=== PATIENT | female | born 1945 | race African-American/Black ===

== ENCOUNTER 2016-11-27 11:38 | Emergency (ER) | payer MEDICARE, OTHER ==
[~2016-11-27] VITALS: Ht 157.5 cm; Wt 69.0 kg
[~2016-11-27 11:38] MED LIST: AMLO-511 PO; ASPI-556 PO; CARI350 PO; CODEINE; DIAZ10 PO; DOCU-174 PO; ESOM20CA31 PO; FURO20 PO; HYDR-3965 PO; IBUP-2070 PO; LEVO100 PO; LORA10TA7 PO; LOSA50TA37 PO; MELO-273 PO; METF500T4 PO; MOME17N NASAL; POTA8TAB4 PO; PREG100C PO; PROMETH; RISP.5 PO; SIMV-260 PO; TEMA15CA PO; TRAVATAN EYE DROP; TRAZ-144 PO; VENTOLIN INH
[2016-11-27 11:47] LABS: GLUCOSE,POINT OF CARE 272 MG/DL (70-110)
[2016-11-27] MEDS ORDERED: ONDANSETRON HCL 4 MG TABLET PO ONE (12:00)
[2016-11-27] MEDS ORDERED: OxyCODONE HCL/ACETAMINOPHEN 5-325 MG TABLET PO ONE (12:00)
[2016-11-27 12:08] LABS: APPEARANCE,URINE CLEAR (CLEAR); GLUCOSE, URINE (UA) NEGATIVE (NEGATIVE); KETONES,URINE NEGATIVE (NEGATIVE); LEUKOCYTE ESTERASE ,URINE SMALL (NEGATIVE); OCCULT BLOOD,URINE MODERATE (NEGATIVE); PROTEIN,URINE NEGATIVE (NEGATIVE)
[2016-11-27 12:14] LABS: RBC,URINE 0-2 /HPF (0-2); SQUAMOUS EPITHELIAL CELL,UR Few /LPF (None Seen)
[2016-11-27 12:29] LABS: BASOPHILS % (AUTO) 0.3 % (0.0-2.0); EOSINOPHILS % (AUTO) 2.1 % (1.0-6.0); HEMATOCRIT 41.4 % (36-46); HEMOGLOBIN 13.1 g/dL (12.0-16.0); LYMPHOCYTES % (AUTO) 27.9 % (22.0-44.0); MEAN CORPUSCULAR HEMOGLOBIN 29.6 pg (26.0-34.0); MEAN CORPUSCULAR HGB CONC 31.7 G/dL (31.0-37.0); MEAN CORPUSCULAR VOLUME 93 fL (80-100); MONOCYTES # (AUTO) 0.9 K/uL (0.1-1.0); MONOCYTES % (AUTO) 8.2 % (2.0-9.0); NEUTROPHILS # (AUTO) 6.6 K/uL (1.8-7.7); NEUTROPHILS % (AUTO) 61.5 % (40.0-70.0); PLATELET COUNT (AUTO) 158 K/uL (150-450); RED BLOOD CELL COUNT(AUTO) 4.43 MIL/uL (4.00-5.20); RED CELL DISTRIBUTION WIDTH 14.3 % (11.5-14.5); WHITE BLOOD COUNT (AUTO) 10.8 K/uL (4.5-11.0)
[2016-11-27 12:40] LABS: CREATININE 1.32 mg/dL (0.60-1.30); POTASSIUM 4.1 mmol/L (3.5-5.1)
[2016-11-27 12:44] VITALS: BP 129/83
[2016-11-27 12:45] LABS: ALBUMIN 3.2 g/dL (3.4-5.0); BILIRUBIN,TOTAL 0.4 mg/dL (0.1-1.0); TOTAL PROTEIN, SERUM 6.8 g/dL (6.4-8.2)
[2016-11-27] MEDS ORDERED: CefTRIAXone 1 GM/DEXTROSE 50 ML IV ONE (13:15)
[2016-11-27] MEDS ORDERED: KETOROLAC TROMETHAMINE 30 MG/ML VIAL IVP ONE (13:15)
== END 2016-11-27 13:34 | disposition home or self-care (01) ==
LOC: EMS 11:42
DX: N39.0 Urinary tract infection, site not specified (principal); I10 Essential (primary) hypertension; E11.9 Type 2 diabetes mellitus without complications; F17.210 Nicotine dependence, cigarettes, uncomplicated; Z79.82 Long term (current) use of aspirin; Z88.5 Allergy status to narcotic agent
CPT/HCPCS: 36415; 76856; 80053; 81001; 82962; 85025; 87077; 87086; 96374; 96375; 99285; J0696; J1885; Q0162

== ENCOUNTER → 2016-12-19 | Outpatient (CLI) | payer MEDICARE, OTHER ==
[~2016-12-19] MED LIST changes: +REGADENOSON 0.4 MG/5 ML PF SYRINGE IVP ONE; +SESTAMIBI TC99M/UD ISOTOPE 1 EA INJ INJ ONE
[2016-12-19 08:30] VITALS: BP 129/95
[2016-12-19 09:29] VITALS: BP 149/90
== END | disposition home or self-care (01) ==
LOC: CARDMN 07:58
PROVIDERS: ATTEND Internal Medicine Cardiovascular Disease
DX: I25.9 Chronic ischemic heart disease, unspecified (principal); I50.1 Left ventricular failure, unspecified; I08.1 Rheumatic disorders of both mitral and tricuspid valves
CPT/HCPCS: 78452; 93017; 93306; A9500; J2785

== ENCOUNTER → 2016-12-27 | Outpatient (CLI) | payer MEDICARE, OTHER ==
[~2016-12-27] VITALS: Ht 157.5 cm; Wt 81.8 kg
[~2016-12-27] MED LIST changes: +ASCO500; +AZIT250T PO; +CEFU500T PO; +HYDR-3971 PO; +LUBI8CAP PO; +MELO15TA12 PO; +METO-325 PO; +MULT1CAP32 PO; +OLOP2.5D OP; +OXYC10 PO; +OXYM40TA PO; +PANT40TA25 PO; +POTA10TA23 PO; -REGADENOSON 0.4 MG/5 ML PF SYRINGE IVP ONE; -SESTAMIBI TC99M/UD ISOTOPE 1 EA INJ INJ ONE; +ZINC220 PO; +[UNRECOGNIZED DRUG - OTHER] PO
[2016-12-27 13:34] VITALS: BP 140/76
== END | disposition home or self-care (01) ==
LOC: SRCNTR 13:23
PROVIDERS: ATTEND Internal Medicine Critical Care Medicine
DX: E11.9 Type 2 diabetes mellitus without complications (principal); J44.1 Chronic obstructive pulmonary disease with (acute) exacerbation; I10 Essential (primary) hypertension; E78.5 Hyperlipidemia, unspecified; K21.0 Gastro-esophageal reflux disease with esophagitis; E05.90 Thyrotoxicosis, unspecified without thyrotoxic crisis or storm; M60.9 Myositis, unspecified; I67.1 Cerebral aneurysm, nonruptured
CPT/HCPCS: G0463

== ENCOUNTER → 2017-11-13 | Outpatient (CLI) | payer MEDICARE, OTHER ==
[~2017-11-13] VITALS: Ht 157.5 cm; Wt 85.0 kg
[~2017-11-13] MED LIST changes: -ASCO500; -AZIT250T PO; -CEFU500T PO; -DOCU-174 PO; +DOCU100C34 PO; -HYDR-3965 PO; -HYDR-3971 PO; +HYDR-4061 PO; +IPRA3AMP4 IH; -LUBI8CAP PO; +MELO-107 PO; -MELO-273 PO; -MELO15TA12 PO; -METF500T4 PO; +METF500T6 PO; -METO-325 PO; -MULT1CAP32 PO; -OLOP2.5D OP; -OXYC10 PO; -OXYM40TA PO; -PANT40TA25 PO; -POTA10TA23 PO; -ZINC220 PO; -[UNRECOGNIZED DRUG - OTHER] PO
[2017-11-13 12:20] VITALS: BP 148/95
== END | disposition home or self-care (01) ==
LOC: SRCNTR 12:09
PROVIDERS: ATTEND Internal Medicine Critical Care Medicine
DX: J44.1 Chronic obstructive pulmonary disease with (acute) exacerbation (principal); I10 Essential (primary) hypertension; E11.9 Type 2 diabetes mellitus without complications; K21.9 Gastro-esophageal reflux disease without esophagitis; E78.5 Hyperlipidemia, unspecified; M79.1 Myalgia; I67.1 Cerebral aneurysm, nonruptured; E05.90 Thyrotoxicosis, unspecified without thyrotoxic crisis or storm
CPT/HCPCS: G0463

== ENCOUNTER → 2021-06-09 | Outpatient (CLI) | payer MEDICARE, OTHER ==
[~2021-06-09] MED LIST changes: +AMLO-257 PO; -AMLO-511 PO; -CARI350 PO; +IPRA3AMP24 IH; -IPRA3AMP4 IH; +METF-1211 PO; -METF500T6 PO; -POTA8TAB4 PO; -RISP.5 PO; +RISP0.5T39 PO; +SLOWK8 PO; -TRAZ-144 PO; +TRAZ-252 PO
== END | disposition home or self-care (01) ==
LOC: RADMN 12:09
PROVIDERS: ATTEND Specialist
DX: I67.82 Cerebral ischemia (principal); I63.81 Other cerebral infarction due to occlusion or stenosis of small artery; J34.89 Other specified disorders of nose and nasal sinuses
CPT/HCPCS: 70551

== ENCOUNTER → 2021-06-12 | Outpatient (CLI) | payer MEDICARE, OTHER | END | disposition home or self-care (01) | LOC: RADMN 12:32 | PROVIDERS: ATTEND Specialist | DX: M50.021 Cervical disc disorder at C4-C5 level with myelopathy (principal); M48.02 Spinal stenosis, cervical region; M75.102 Unspecified rotator cuff tear or rupture of left shoulder, not specified as traumatic; D36.9 Benign neoplasm, unspecified site; M75.52 Bursitis of left shoulder; G95.89 Other specified diseases of spinal cord | CPT/HCPCS: 72141; 73221 ==

== ENCOUNTER → 2023-03-26 | Outpatient (CLI) | payer MEDICARE, OTHER ==
[~2023-03-26] MED LIST changes: +IBUP-1492 PO; -IBUP-2070 PO; +LOSA-382 PO; -LOSA50TA37 PO; -MELO-107 PO; +MELO-381 PO
== END | disposition home or self-care (01) ==
LOC: RADMN 10:48
PROVIDERS: ATTEND Internal Medicine Geriatric Medicine
DX: M19.012 Primary osteoarthritis, left shoulder (principal); M47.814 Spondylosis without myelopathy or radiculopathy, thoracic region; M75.82 Other shoulder lesions, left shoulder; R91.8 Other nonspecific abnormal finding of lung field; M25.512 Pain in left shoulder
CPT/HCPCS: 71046